=== PATIENT | female | born 1950 | race Caucasian/White ===

== ENCOUNTER → 2018-12-10 | Outpatient (CLI) | payer MEDICARE ==
--- NOTE | 2018-12-10 17:39 | BD ---
EXAMINATION TYPE: Axial Bone Density DATE OF EXAM: 12/10/2018 COMPARISON: NONE CLINICAL HISTORY: 68-year-old female disorder bone density and structure Height: 65.2 IN Weight: 142 LBS RISK FACTORS HISTORY OF: Active: YES Postmenopausal woman: AGE 55 MEDICATIONS: Thyroid Medications: YES Which medication: LEVOTHYROXINE How Lon + YEARS Additional Medications: LEVOTHYROXINE EXAM MEASUREMENTS: Bone mineral densitometry was performed using the SDI System. Bone mineral density as measured about the Lumbar spine is: ----- L1-L4(G/cm2): 1.054 T Score Values are as follows: ----- L2: -0.8 ----- L3: -0.8 ----- L4: -1.9 ----- L1-L4: -1.0 Bone mineral density BASELINE Bone mineral density about the R hip (g/cm2): 0.718 Bone mineral density about the L hip (g/cm2): 0.761 T Score values are as follows: -----R Neck: -2.3 -----L Neck: -2.0 -----R Total: -1.9 -----L Total: -2.0 Bone mineral density BASELINE IMPRESSION: Osteopenia (T Score between -2.5 and -1). There is slightly increased risk of fracture and the patient may be considered for treatment. Re-Screen 2-5 years. NOTE: T-SCORE=SD OF THE YOUNG ADULT MEAN.
== END | disposition home or self-care (01) ==
LOC: RADBDWWP 09:05
PROVIDERS: ATTEND Family Medicine
DX: M85.80 Other specified disorders of bone density and structure, unspecified site (principal)
CPT/HCPCS: 77080

== ENCOUNTER → 2024-01-24 | Outpatient (CLI) | payer MEDICARE ==
--- NOTE | 2024-01-28 17:20 | MM ---
Reason for Exam: Screening (asymptomatic). Last mammogram was performed 1 year(s) and 6 month(s) ago. Patient History: Menarche at age 14. Hysterectomy at age 55. Excisional Biopsy on the Right side. Risk Values: Rebeca 5 year model risk: 1.4%. NCI Lifetime model risk: 3.4%. Prior Study Comparison: 09/10/2002 Bilateral Special View Mammogram, [facility]. 08/19/2004 Bilateral Screening Mammogram, [facility]. 08/24/2005 Bilateral Screening Mammogram, [facility]. Tissue Density: There are scattered areas of fibroglandular density. Findings: Analyzed By CAD. Asymmetric density central outer aspect of the right breast CC view posterior depth is more defined and incompletely disperses on 3 images. No correlate on the MLO view. Superimposition shadow suspected but additional evaluation is recommended. Otherwise, no significant change. Overall Assessment: Incomplete: need additional imaging evaluation, BI-RAD 0 Management: Special View Mammogram of the right breast. . [facility] will attempt to contact patient to return for supplemental views and ultrasound if indicated. Electronically signed and approved by: Mason Patricio M.D. Radiologist
== END | disposition home or self-care (01) ==
LOC: RADMAMWWP 08:32
PROVIDERS: ATTEND Family Medicine
DX: Z12.31 Encounter for screening mammogram for malignant neoplasm of breast (principal)
CPT/HCPCS: 77063; 77067

== ENCOUNTER → 2024-01-31 | Outpatient (CLI) | payer MEDICARE ==
--- NOTE | 2024-01-31 09:05 | MM ---
Reason for Exam: Additional evaluation requested from abnormal screening. Last screening mammogram was performed less than 1 month ago. Patient History: Menarche at age 14. Hysterectomy at age 55. Excisional Biopsy on the Right side. Risk Values: Rebeca 5 year model risk: 1.4%. NCI Lifetime model risk: 3.4%. Prior Study Comparison: 08/19/2004 Bilateral Screening Mammogram, [facility]. 07/13/2021 Bilateral MG 3D screening mammo w/cad, [facility]. 07/14/2022 Bilateral MG 3D screening mammo w/cad, [facility]. 01/24/2024 Bilateral MG 3D screening mammo w/cad, [facility]. Tissue Density: Right: There are scattered areas of fibroglandular density. Findings: Analyzed By CAD. Central outer asymmetric density on the CC view becomes less defined on the spot 3-D CC views. On tomographic images, it appears to represent a patch of fibroglandular tissue with overall appearance similar to the 2020 exam. Findings compatible with superimposition shadow. No suspicious persisting mass. Overall Assessment: Benign, BI-RAD 2 Management: Screening Mammogram of both breasts in 1 year. Results were given to the patient verbally at the time of exam. Patient should continue monthly self-breast exams. A clinical breast exam by your physician is recommended on an annual basis. This exam should not preclude additional follow-up of suspicious palpable abnormalities. Note on Rebeca scores and lifetime risk: 1. A Rebeca score greater than 3% is considered moderate risk. If this is the case, consider specialist referral to assess eligibility for a risk reducing agent. 2. If overall lifetime risk for the development of breast cancer is 20% or higher, the patient may qualify for future screening with alternating mammogram and breast MRI. Electronically signed and approved by: Mason Patricio M.D. Radiologist
== END | disposition home or self-care (01) ==
LOC: RADMAMWWP 08:38
PROVIDERS: ATTEND Family Medicine
DX: R92.8 Other abnormal and inconclusive findings on diagnostic imaging of breast (principal); R92.321 Mammographic fibroglandular density, right breast
CPT/HCPCS: 77065; G0279; 77061